=== PATIENT | female | born 1965 | race Caucasian/White ===

== ENCOUNTER 2018-01-17 03:23 | Observation (INO) ==
--- NOTE | 2018-01-17 04:33 | XR ---
EXAM DATE: 01/17/2018 4:24 AM EDT AGE/SEX: 52 years / Female INDICATIONS: Chest pain and tightness off and on for 2 weeks. CLINICAL DATA: This is the patient's initial encounter. Patient reports that signs and symptoms have been present for 2 weeks and indicates a pain score of 3/10. MEDICAL/SURGICAL HISTORY: None. None. COMPARISON: No prior exams available for comparison. FINDINGS: A single AP view of the chest demonstrates the lungs to be symmetrically aerated without evidence of mass, infiltrate or effusion. The cardiomediastinal contours are unremarkable. Osseous structures a re intact. CONCLUSION: Negative examination. Electronically signed by: Issac Fraga MD 01/17/2018 4:32 AM EDT
[2018-01-17 04:36] LABS: Baso # (Auto) 0.1 th/mm3 (0.0-0.2); Eos # (Auto) 0.2 th/mm3 (0.0-0.4); Eos % (Auto) 3.1 % (0.0-4.0); Hematocrit 44.6 % (35.0-46.0); Hemoglobin 14.9 gm/dL (11.6-15.3); Lymph # (Auto) 2.9 th/mm3 (1.0-4.8); Lymph % (Auto) 40.8 % (9.0-44.0); Mean Corpuscular HGB Conc 33.4 % (32.0-36.0); Mean Corpuscular Hemoglobin 29.8 pg (27.0-34.0); Mean Corpuscular Volume 89.3 fL (80.0-100.0); Mean Platelet Volume 8.7 fL (7.0-11.0); Mono # (Auto) 0.6 th/mm3 (0.0-0.9); Neut # (Auto) 3.3 th/mm3 (1.8-7.7); Neut % (Auto) 46.1 % (16.0-70.0); Platelet Count 292 th/mm3 (150-450); Red Cell Distribution Width 12.5 % (11.6-17.2); White Blood Count 7.2 th/mm3 (4.0-11.0)
[2018-01-17 04:47] LABS: Activated Partial Thrombo Time 25.2 sec (24.3-30.1); Prothrombin Time 10.4 sec (9.8-11.6)
[2018-01-17 04:49] LABS: Alanine Aminotransferase 24 U/L (10-53); Anion Gap 8 meq/L (5-15); Aspartate Aminotransferase 16 U/L (15-37); Blood Urea Nitrogen 16 mg/dL (7-18); Calcium 8.5 mg/dL (8.5-10.1); Chloride 106 meq/L (98-107); Glomerular Filtration Rate 89 mL/min (>89); Glucose,Random 89 mg/dL (74-106); Lipase 145 U/L (73-393); Magnesium 2.3 mg/dL (1.5-2.5); Potassium 3.6 meq/L (3.5-5.1); Sodium 141 meq/L (136-145)
[2018-01-17 04:53] LABS: Alkaline Phosphatase 48 U/L (45-117)
[2018-01-17 04:55] LABS: Creatine Kinase 45 U/L (26-192)
--- NOTE | 2018-01-17 06:54 | ED ---
HPI General Chief complaint: Chest Pain Stated complaint: chest pressure/tightness/dizziness Time Seen by Provider: 01/17/18 03:51 Source: patient Limitations: no limitations History of Present Illness HPI narrative: The patient is a 52 year old female who presents to the [facility] emergency department with a history of chest pain, dizziness, shortness of breath that began 3 weeks ago. She reports that since then it has been intermittently occurring Since December 20. Initially the patient thought that it was related to a change in her thyroid medication to a new generic, However even after switching back the symptoms have continued. The patient reports that she did on January 05 undergo a TSH that was noted to be low at 0.012. She reports that she did decrease the dose of her supplement. The patient reports that she has been to [facility] emergency department regarding this as well as an urgent reports that she has been referred to a can closing machine tender, however she has not seen one yet. She reports that she last had a stress test done in 2010. She reports that she has a history of cardiomyopathy in 2010 with an ejection fraction of 35% that returned to normal by 2013. The patient reports that this evening she had the chest pain occurred twice. She reports that each time it lasted for 5 minutes. She reports that the pain is a crushing sensation across her chest that radiated into both arms. She also reports that she had palpitations with an elevated heart rate at home up to 140. She denies having any diaphoresis. She reports having nausea without any vomiting. On review of systems otherwise, the patient denies having any known recent fevers, cough or congestion, neck pain, abdominal pain, diarrhea, urinary symptoms, or neurologic symptoms. Related Data Home Medications Medication Instructions Recorded Confirmed baclofen 20 mg PO HS 01/17/18 01/17/18 buspirone 30 mg PO HS 01/17/18 01/17/18 estradiol [Climara] 1 patch TRANSDERMAL QWEEK 01/17/18 01/17/18 liothyronine 50 mcg PO DAILY 01/17/18 01/17/18 methocarbamol [Robaxin] 1,000 mg PO BID 01/17/18 01/17/18 montelukast [Singulair] 10 mg PO DAILY 01/17/18 01/17/18 progesterone micronized 250 mg PO QPM 08/06/18 08/06/18 Allergies Allergy/AdvReac Type Severity Reaction Status Date / Time No Known Allergies Allergy Unverified 01/17/18 03:37 Review of Systems ROS Unobtainable All other systems reviewed negative except as stated in [facility] Medical History Medical History Anxiety (Acute) Cardiomyopathy (Acute) Fibromyalgia (Acute) Hypothyroid (Acute) IBS (irritable bowel syndrome) (Acute) Migraine (Acute) Surgical History Surgical History Hx of section (Acute) Hx of cholecystectomy (Acute) Social History Social History Substance History: No History of Abuse Second Hand Smoke Exposure: No Smoking Status: Never smoker How Often Do You Have a Drink Containing Alcohol: Monthly or less Immunization History Tetanus Immunization: Unsure Hx Influenza Vaccine This Season: No Exam Const General: cooperative, no acute distress and well developed Nutritional Appearance: well nourished Orientation: alert, awake and oriented x3 HENMT Head: normocephalic and atraumatic Nose: no nasal discharge and no epistaxis Mouth: moist mucous membranes Throat: posterior oropharynx normal and uvula midline Eyes Sclera: normal sclerae Pupils: PERRL Neck Neck: no meningeal signs, trachea midline and no JVD Resp Effort & Inspection: no use of accessory muscles Auscultation: clear to auscultation bilaterally Cardio Rate: regular rate Rhythm: regular rhythm Heart Sounds: no murmurs GI Inspection: non-distended Palpation: soft, no hepatosplenomegaly and nontender Auscultation: normal bowel sounds Back/Spine/Pelvis Back: no CVA tenderness Skin General: dry skin (warm) Neuro General: alert and awake Cranial Nerves: other (No facial asymmetry.) Speech: speech normal Motor: no movement abnormalities noted Extrem General: normal to inspection (No calf tenderness on palpation. 2+ pulses in all 4 extremities.), no clubbing, no cyanosis and no edema Psych Mood: congruent mood Affect: normal affect Judgment: judgment good Course Initial Documented Vital Signs Temperature 97.7 F 01/17/18 03:38 Pulse Rate 90 01/17/18 03:38 Respiratory Rate 15 01/17/18 03:38 Blood Pressure 138/86 01/17/18 03:38 Pulse Oximetry 98 01/17/18 03:38 Last Documented Vital Signs Temperature 97.7 F 01/17/18 03:38 Pulse Rate 71 01/17/18 07:38 Respiratory Rate 20 01/17/18 07:38 Blood Pressure 129/83 01/17/18 07:38 Pulse Oximetry 99 01/17/18 07:38 Medical Decision Making MDM Narrative Medical decision making narrative: During the course of the patient's emergency department visit, the patient's history, examination, and differential diagnosis were reviewed with the patient. The patient was placed on a cafeteria monitor with oximetry and frequent blood pressure monitoring. The patient had IV access obtained and blood work sent for analysis. A diagnostic evaluation was started regarding the patient's chest pain. The patient was initially provided Aspirin 324 mg p.o. 1, sublingual nitroglycerin 1. The patient's laboratory studies are remarkable for a white count of 7.2, platelets 292, monocyte percent 9.0, hemoglobin 14.9. PT PTT within normal limits, chemistries are remarkable for a troponin I of less than 0.02, CPK 45, TSH is 0.067 which is improved compared to her last level drawn on January 05 of 0.012, BNP is 16, lipase within normal limits. Chest x-ray shows no acute abnormality. The patient will be admitted to the chest pain center for rule out serial cardiac enzyme protocol followed by consideration of stress testing. The patient's results were discussed with the patient, including the plan of care. I explained that further testing and/ or monitoring is indicated based on the patient's history, examination, and/ or laboratory findings. Therefore, I recommended admission for additional evaluation. The patient expressed understanding and was agreeable with this plan. The patient was admitted to the hospital in stable condition and sent to a bed under the care of [facility]. Differential Diagnosis Differential Diagnosis: Acute coronary syndrome, versus hyperthyroidism, versus acid reflux, versus pneumonia Medical Records Medical records reviewed: Yes I reviewed the patient's medical records. Lab Data Lab results reviewed: Yes I reviewed the patient's lab results. Result diagrams: 01/17/18 04:26 01/17/18 04:26 Lab Results 01/17/18 01/17/18 01/17/18 Range/Units 04:26 04:26 04:26 WBC 7.2 (4.0-11.0) th/mm3 RBC 5.00 (4.00-5.30) mil/mm3 Hgb 14.9 (11.6-15.3) gm/dL Hct 44.6 (35.0-46.0) % MCV 89.3 (80.0-100.0) fL MCH 29.8 (27.0-34.0) pg MCHC 33.4 (32.0-36.0) % RDW 12.5 (11.6-17.2) % Plt Count 292 (150-450) th/mm3 MPV 8.7 (7.0-11.0) fL Neut % (Auto) 46.1 (16.0-70.0) % Lymph % (Auto) 40.8 (9.0-44.0) % [place] % (Auto) 9.0 H (0.0-8.0) % Eos % (Auto) 3.1 (0.0-4.0) % Baso % (Auto) 1.0 (0.0-2.0) % Neut # (Auto) 3.3 (1.8-7.7) th/mm3 Lymph # (Auto) 2.9 (1.0-4.8) th/mm3 [place] # (Auto) 0.6 (0.0-0.9) th/mm3 Eos # (Auto) 0.2 (0.0-0.4) th/mm3 Baso # (Auto) 0.1 (0.0-0.2) th/mm3 WBC Differential . Differential Comment Auto diff final PT 10.4 (9.8-11.6) sec INR 1.0 Ratio APTT 25.2 (24.3-30.1) sec Sodium 141 (136-145) meq/L Potassium 3.6 (3.5-5.1) meq/L Chloride 106 (98-107) meq/L Carbon Dioxide 27.0 (21.0-32.0) meq/L Anion Gap 8 (5-15) meq/L BUN 16 (7-18) mg/dL Creatinine 0.69 (0.50-1.00) mg/dL Estimated GFR 89 (>89) mL/min Random Glucose 89 (74-106) mg/dL Calcium 8.5 (8.5-10.1) mg/dL Magnesium 2.3 (1.5-2.5) mg/dL Total Bilirubin 0.2 (0.2-1.0) mg/dL AST 16 (15-37) U/L ALT 24 (10-53) U/L Alkaline Phosphatase 48 (45-117) U/L Total Creatine Kinase 45 (26-192) U/L Troponin I Less than 0.02 L (0.02-0.05) ng/mL B-Natriuretic Peptide (0-100) pg/mL Total Protein 7.0 (6.4-8.2) g/dL Albumin 4.0 (3.4-5.0) g/dL Lipase 145 (73-393) U/L TSH (0.358-3.740) uIU/mL 01/17/18 01/17/18 Range/Units 04:26 04:26 WBC (4.0-11.0) th/mm3 RBC (4.00-5.30) mil/mm3 Hgb (11.6-15.3) gm/dL Hct (35.0-46.0) % MCV (80.0-100.0) fL MCH (27.0-34.0) pg MCHC (32.0-36.0) % RDW (11.6-17.2) % Plt Count (150-450) th/mm3 MPV (7.0-11.0) fL Neut % (Auto) (16.0-70.0) % Lymph % (Auto) (9.0-44.0) % [place] % (Auto) (0.0-8.0) % Eos % (Auto) (0.0-4.0) % Baso % (Auto) (0.0-2.0) % Neut # (Auto) (1.8-7.7) th/mm3 Lymph # (Auto) (1.0-4.8) th/mm3 [place] # (Auto) (0.0-0.9) th/mm3 Eos # (Auto) (0.0-0.4) th/mm3 Baso # (Auto) (0.0-0.2) th/mm3 WBC Differential Differential Comment PT (9.8-11.6) sec INR Ratio APTT (24.3-30.1) sec Sodium (136-145) meq/L Potassium (3.5-5.1) meq/L Chloride (98-107) meq/L Carbon Dioxide (21.0-32.0) meq/L Anion Gap (5-15) meq/L BUN (7-18) mg/dL Creatinine (0.50-1.00) mg/dL Estimated GFR (>89) mL/min Random Glucose (74-106) mg/dL Calcium (8.5-10.1) mg/dL Magnesium (1.5-2.5) mg/dL Total Bilirubin (0.2-1.0) mg/dL AST (15-37) U/L ALT (10-53) U/L Alkaline Phosphatase (45-117) U/L Total Creatine Kinase (26-192) U/L Troponin I (0.02-0.05) ng/mL B-Natriuretic Peptide 4 (0-100) pg/mL Total Protein (6.4-8.2) g/dL Albumin (3.4-5.0) g/dL Lipase (73-393) U/L TSH 0.067 L (0.358-3.740) uIU/mL Imaging Data Radiologist's impression: Chest X-Ray 01/17/18 03:53 CONCLUSION: Negative examination. ECG Data Attestation: I personally reviewed and interpreted this ECG as follows: Interpretation: The patient had an EKG done on arrival. The patient's EKG reveals a heart rate of 73, QRS duration is 75 ms, QTC [address] segment elevation. Discharge Plan Discharge Disposition Patient Disposition: 30 Still Patient Physicians Team ED Provider: Marlena Chaudhry Primary Care Provider: Matt Ying Attending Provider: Obed Castillo Discharge Interventions Interventions: Vital Signs Last Done: 01/17/18 03:53 Status ED Status: Admitted Observation Patient
[2018-01-17] MEDS ORDERED: Acetaminophen 500 MG Tablet PO PRN (06:55)
--- NOTE | 2018-01-17 08:03 | P.HPCA ---
History of Present Illness Primary Care Physician: Matt Ying MD Chief Complaint: Chest pain History of Present Illness: 52 year old female with history of anxiety, fibromyalgia, hypothyroidism, irritable bowel syndrome, and reportedly cardiomyopathy presents emergency room for further evaluation intermittent, nonexertional chest pain. First episode occurred on 12/25/17. Seen and evaluated at [facility], no cardiac testing completed, discharged home. Seen her PCP after ER visit. Received referrals to an rail bonder and airconditioning engineer, those appointments are scheduled at a later date. Describes intermittent chest pressure with accompanied dyspnea and dizziness. Occurs once or twice daily. Duration varies. Severe discomfort may last 20-30 minutes followed by lingering all day pain. No precipitating or relieving factors. Discomfort also awakens her from sleep. Last evening at midnight was awakened with substernal chest pressure and "crushing feeling." She fell back to sleep. Awakened again at 2 AM with same pain. Recent change in thyroid medication, otherwise no medications changes. Endorses cardiac catheterization completed by Dr. Ron Escamilla approximately 4 years ago. Diagnosed with cardiomyopathy after cardiac catheterization with ER of 35%. Followed yearly with echocardiograms, last year was discharged by her airconditioning engineer as ejection fraction normalized and remained stable for 3 years. Reports cardiac catheterization had "maybe 10%" blockage, otherwise coronary arteries normal. No recent illness, fever, or injury. - Diagnosis (1) Chest pain, atypical Review of Systems All other systems reviewed negative except as stated in HPI PMFSH - History History Provided By: Patient - Medical History Medical History: Medical History (Last Reviewed 01/17/18 @ 09:12 by YAYA Katz) Anxiety Cardiomyopathy Fibromyalgia Hypothyroid IBS (irritable bowel syndrome) Migraine - Surgical History Surgical History: Surgical History (Last Reviewed 01/17/18 @ 07:49 by Marlena Chaudhry MD) Hx of section Hx of cholecystectomy - Tobacco History Second Hand Smoke Exposure: No Tobacco Use In Past 30 Days: No Smoking Status: Never smoker - Alcohol History How Often Do You Have a Drink Containing Alcohol: Monthly or less - Substance Use History Substance History: No History of Abuse - Immunization History Tetanus Immunization: Unsure Hx Influenza Vaccine This Season: No Medications and Allergies Active Medications: Active Medications Acetaminophen (Tylenol) 500 mg PO Q4H PRN PRN Reason: HEADACHE Sodium Chloride (Ns Flush) 2 ml IV.FLUSH UNSCH PRN PRN Reason: FLUSH AFTER USING IV ACCESS Sodium Chloride (Ns Flush) 2 ml IV.FLUSH BID FIGUEROA Sodium Chloride (Ns Flush) 2 ml IV.FLUSH PRN PRN PRN Reason: FLUSH AFTER USING IV ACCESS Allergies Allergy/AdvReac Type Severity Reaction Status Date / Time No Known Allergies Allergy Unverified 01/17/18 03:37 Home Medications Medication Instructions Recorded Confirmed Type baclofen 20 mg PO HS 01/17/18 01/17/18 History buspirone 30 mg PO HS 01/17/18 01/17/18 History estradiol [Climara] 1 patch TRANSDERMAL QWEEK 01/17/18 01/17/18 History liothyronine 50 mcg PO DAILY 01/17/18 01/17/18 History methocarbamol [Robaxin] 1,000 mg PO BID 01/17/18 01/17/18 History montelukast [Singulair] 10 mg PO DAILY 01/17/18 01/17/18 History progesterone micronized 250 mg PO QPM 01/17/18 01/17/18 History Exam Vital signs: Vital Signs 01/17/18 03:38 01/17/18 03:53 01/17/18 04:25 Temperature 97.7 F Pulse Rate 90 83 Respiratory Rate 15 18 Blood Pressure 138/86 137/97 H Pulse Oximetry 98 96 96 01/17/18 07:38 Temperature Pulse Rate 71 Respiratory Rate 20 Blood Pressure 129/83 Pulse Oximetry 99 Intake & Output 01/16/18 01/17/18 01/17/18 18:59 06:59 18:59 Weight 49.895 kg Narrative: GENERAL: Alert WN, WD, NAD, pleasant, female HEAD: NC, AT CV: RRR, without murmur, rub, gallop, no JVD. RESP: Clear lungs throughout bilateral, no crackles, wheeze, rhonchi, symmetrical chest rise, nonlabored, able to speak in full sentences ABD: Soft, NT, ND, no masses, positive bowel tones EXT: Pulses +2x4, no dependent edema MS: Normal tone x4 extremities, nontender, no obvious deformities, full range of motion NEURO: CN II through CN XII grossly intact, motor strength 5/5 PSYCH: A+O x3, pleasant affect, appropriate speech, mood, insight and judgment SKIN: Normal turgor, normal texture, no lesions, no rashes, brisk cap refill, even hair distribution Results 01/17/18 04:26 01/17/18 04:26 Cardiac Enzymes 01/17/18 01/17/18 Range/Units 04:26 04:26 AST 16 (15-37) U/L Troponin I Less than 0.02 L (0.02-0.05) ng/mL B-Natriuretic Peptide 4 (0-100) pg/mL Coagulation 01/17/18 01/17/18 Range/Units 04:26 04:26 PT 10.4 (9.8-11.6) sec APTT 25.2 (24.3-30.1) sec B-Natriuretic Peptide 4 (0-100) pg/mL CBC 01/17/18 Range/Units 04:26 WBC 7.2 (4.0-11.0) th/mm3 RBC 5.00 (4.00-5.30) mil/mm3 Hgb 14.9 (11.6-15.3) gm/dL Hct 44.6 (35.0-46.0) % Plt Count 292 (150-450) th/mm3 Neut # (Auto) 3.3 (1.8-7.7) th/mm3 Lymph # (Auto) 2.9 (1.0-4.8) th/mm3 [place] # (Auto) 0.6 (0.0-0.9) th/mm3 Eos # (Auto) 0.2 (0.0-0.4) th/mm3 Baso # (Auto) 0.1 (0.0-0.2) th/mm3 Comprehensive Metabolic Panel 01/17/18 Range/Units 04:26 Sodium 141 (136-145) meq/L Potassium 3.6 (3.5-5.1) meq/L Chloride 106 (98-107) meq/L Carbon Dioxide 27.0 (21.0-32.0) meq/L BUN 16 (7-18) mg/dL Creatinine 0.69 (0.50-1.00) mg/dL Calcium 8.5 (8.5-10.1) mg/dL AST 16 (15-37) U/L ALT 24 (10-53) U/L Alkaline Phosphatase 48 (45-117) U/L Total Protein 7.0 (6.4-8.2) g/dL Albumin 4.0 (3.4-5.0) g/dL Intake and Output 01/16/18 01/17/18 01/17/18 22:59 06:59 14:59 Other: Weight 49.895 kg EKG interpretations - EKG EKG results cardiology: sinus rhythm, normal axis, normal QRS, normal ST/T Caprini VTE Risk Assessment Caprini VTE Risk Assessment: No/Low Risk (score <= 1) Caprini Risk Assessment Model: Point Value = 1 Point Value = 2 Point Value = 3 Point Value = 5 Age 41-60 Minor surgery BMI > 25 kg/m2 Swollen legs Varicose veins or History of unexplained or recurrent spontaneous Oral contraceptives or hormone replacement Sepsis (< 1 month) Serious lung disease, including pneumonia (< 1 month) Abnormal pulmonary function Acute myocardial infarction Congestive heart failure (< 1 month) History of inflammatory bowel disease Medical patient at bed rest Age 61-74 Arthroscopic surgery Major open surgery (> 45 min) Laparoscopic surgery (> 45 min) Malignancy Confined to bed (> 72 hours) Immobilizing plaster cast Central venous access Age >= 75 History of VTE Family history of VTE Factor V Leiden Prothrombin [id number] Lupus anticoagulant Anticardiolipin antibodies Elevated serum homocysteine Heparin-induced thrombocytopenia Other congenital or acquired thrombophilia Stroke (< 1 month) Elective arthroplasty Hip, pelvis, or leg fracture Acute spinal cord injury (< 1 month) Prophylaxis Regimen: Total Risk Factor Score Risk Level Prophylaxis Regimen 0-1 Low Early ambulation 2 Moderate Order ONE of the following: *Sequential Compression Device (SCD) *Heparin 5000 units SQ BID 3-4 Higher Order ONE of the following medications: *Heparin 5000 units SQ TID *Enoxaparin/Lovenox 40 mg SQ daily (WT < 150 kg, CrCl > 30 mL/min) *Enoxaparin/Lovenox 30 mg SQ daily (WT < 150 kg, CrCl > 10-29 mL/min) *Enoxaparin/Lovenox 30 mg SQ BID (WT < 150 kg, CrCl > 30 mL/min) AND/OR *Sequential Compression Device (SCD) 5 or more Highest Order ONE of the following medications: *Heparin 5000 units SQ TID (Preferred with Epidurals) *Enoxaparin/Lovenox 40 mg SQ daily (WT < 150 kg, CrCl > 30 mL/min) *Enoxaparin/Lovenox 30 mg SQ daily (WT < 150 kg, CrCl > 10-29 mL/min) *Enoxaparin/Lovenox 30 mg SQ BID (WT < 150 kg, CrCl > 30 mL/min) AND *Sequential Compression Device (SCD) Assessment and Plan - Assessment (1) Chest pain, atypical Code(s): R07.89 - Other chest pain Status: Acute Plan: Admitted to chest pain center. Seen and evaluated by Dr. Pedro Rodriguez. Proceed with Lexiscan this morning. Initial EKG and troponin unremarkable. Discomfort atypical, unlikely to be cardiac. Fairly recent cardiac catheterization with reportedly normal urinary arteries. Reassurance provided. Also discussed ejection fraction estimate will be given with Lexiscan report. Verbalized understanding and agreeable to plan of care.
[2018-01-17] MEDS ORDERED: Regadenoson Inj 0.4 MG/5 ML Syringe IV.PUSH ONE (09:49)
[2018-01-17] MEDS ORDERED: Methocarbamol 500 MG Tablet PO SCH (10:00)
[2018-01-17] MEDS ORDERED: Montelukast 10 MG Tablet PO SCH (10:00)
--- NOTE | 2018-01-17 10:53 | NM ---
EXAM DATE: 01/17/2018 10:36 AM EDT AGE/SEX: 52 years / Female INDICATIONS:Angina. . Mid chest pain with shortness of breath and dizziness. CLINICAL DATA: This is the patient's initial encounter. Patient reports that signs and symptoms have been present for 1 day and indicates a pain score of 4/10. MEDICAL/SURGICAL HISTORY: Hypothyroidism. Cholecystectomy. section. COMPARISON: No prior exams available for comparison. No external comparison. DOSE: 8.7 mCi Tc 99m Myoview at rest 26.8 mCi [id number] at stress 0.4 mg Lexiscan STRESS SYMPTOMS: Dyspnea and chest pain. EJECTION FRACTION: >70 % TECHNIQUE: The patient underwent pharmacologic stress with infusion of prescribed dose. Continuous ECG tracing was monitored during stress. Gated SPECT imaging was performed after stress and conventi onal SPECT imaging was performed at rest. The examination was performed on a SPECT/CT scanner, both attenuation and non-corrected datasets were reviewed. FINDINGS: Distribution: The maximum perfused segment at stress is in the anterolateral wall. Perfusion Study: The pattern of perfusion at stress is within normal limits. Gated Study: There are intact wall motion and wall thickening without hypokinetic or dyskinetic segm ents. The ejection fraction is calculated at >70%. RISK CATEGORY: Low (<1% Annual Motality Rate) CONCLUSION: 1. No significant reversibility to suggest ischemia. 2. Normal wall motion analysis with ejection fraction greater than 70%. Electronically signed by: Sunil Damon MD 01/17/2018 10:52 AM EDT
[2018-01-18 21:49] VITALS: BP 100/75; PULSE 82; RESP 16; TEMP 98.2; O2SAT 97
--- NOTE | 2018-01-19 09:07 | ECG ---
Date Performed: 01/17/2018 Time Performed: 04:03:58 PTAGE: 52 years EKG: Sinus rhythm NORMAL ECG PREVIOUS TRACING : 12/04/2015 12.44 Since previous tracing, no significant change noted DOCTOR: Pedro Rodriguez Interpretating Date/Time 01/19/2018 09:03:59
--- NOTE | 2018-01-19 09:09 | TR ---
Date Performed: 01/17/2018 Time Performed: 09:28:04 DOCTOR: Pedro Rodriguez DRUG LIST: CLINICAL HISTORY: REASON FOR TEST: REASON FOR ENDING: OBSERVATION: CONCLUSION: COMMENTS: Lexiscan stress test was performed under standard four minute protocol. Radionuclide was injected one minute prior to ending the test. No electrocardiographic abormalities were present t o suggest ischemia. Nuclear imaging and interpretation are pending.
== END 2018-01-17 11:53 | disposition home or self-care (01) ==
LOC: NEPGCP 03:23 → NEPC 03:23 → NEDA 03:23 → NEPGCP 10:35

== ENCOUNTER 2018-02-08 21:14 | Observation (INO) ==
[2018-02-08] MEDS ORDERED: Pantoprazole Inj 40 MG Vial IV.PUSH ONE (23:18)
[2018-02-08] MEDS ORDERED: Morphine Inj 4 MG/ML Vial IV.PUSH ONE (23:18)
[2018-02-08] MEDS ORDERED: Sod Chloride 0.9% Inj 1,000 ML IV.SIG ONE (23:18)
[2018-02-08] MEDS ORDERED: Bisacodyl 10 MG Supp RECTAL PRN (23:18)
--- NOTE | 2018-02-08 23:24 | ED ---
HPI General Chief Complaint: Abdominal Pain Stated Complaint: Abd pain [id number] History of Present Illness HPI narrative: 52-year-old female with a past medical history fibromyalgia and hypothyroidism presents to the emergency room complaining of persistent epigastric abdominal pain radiating into the chest was burning sensation in the upper chest and throat area with associated nausea, vomiting, shortness of breath especially when laying flat. Patient was seen in the emergency room several times this month for similar symptoms and received cardiac clearance by stress test. Patient reports taking Protonix and Carafate as an outpatient however she is unable to tolerate the medication by mouth for the persistent nausea and vomiting. Related Data Home Medications Medication Instructions Recorded Confirmed baclofen 20 mg PO HS 01/22/18 02/08/18 buspirone 30 mg PO HS 01/22/18 02/08/18 estradiol [Estradiol Transdermal 0.05 mg TRANSDERMAL QWEEK 01/22/18 02/08/18 Patch] montelukast 10 mg PO QPM 01/22/18 02/08/18 progesterone micronized 250 mg PO DAILY 01/22/18 02/08/18 liothyronine 12.5 mcg PO DAILY 02/09/18 02/09/18 methocarbamol [Robaxin] 500 mg PO BID 02/09/18 02/09/18 pantoprazole 40 mg PO DAILY 02/09/18 02/09/18 sucralfate [Carafate] 10 ml PO TID 02/09/18 02/09/18 Allergies Allergy/AdvReac Type Severity Reaction Status Date / Time ciprofloxacin [From Cipro] AdvReac Nausea Verified 02/08/18 22:57 levofloxacin [From Levaquin] AdvReac Nausea Verified 02/08/18 22:57 Review of Systems Constitutional Denies fever(s) Eyes Denies change in vision ENT Denies headache(s) and Denies nasal congestion Cardiovascular Reports chest pain Respiratory Denies dyspnea Gastrointestinal Reports abdominal pain, Reports belching, Reports nausea and Reports vomiting Genitourinary Denies difficulty voiding Musculoskeletal Denies myalgias Integumentary/Breasts Denies rash Neurologic Denies headache(s) Psychiatric Denies depression Endocrine Denies polyuria Hematologic/Lymphatic Denies easy bruising [facility] Medical History Medical History Migraine (Acute) IBS (irritable bowel syndrome) (Acute) Anxiety (Acute) Fibromyalgia (Acute) Cardiomyopathy (Acute) Hypothyroid (Acute) Surgical History Surgical History Hx of section (Acute) Hx of cholecystectomy (Acute) Social History Social History Substance History: No History of Abuse Second Hand Smoke Exposure: No Smoking Status: Never smoker How Often Do You Have a Drink Containing Alcohol: Never Recent Travel in [facility] [[email or web address]] within the Last 8 Weeks: No Recent Out of Country Travel within the Last 8 Weeks: No Immunization History Tetanus Immunization: >5 Years Hx Influenza Vaccine This Season: No Exam Narrative Exam Narrative: GENERAL: Patient is alert and oriented -3 SKIN: Focused skin assessment warm/dry. HEAD: Atraumatic. Normocephalic. EYES: Pupils equal and round. No scleral icterus. No injection or drainage. ENT: No nasal bleeding or discharge. Mucous membranes pink and moist. NECK: Trachea midline. No JVD. CARDIOVASCULAR: Regular rate and rhythm. No murmur appreciated. RESPIRATORY: No accessory muscle use. Clear to auscultation. Breath sounds equal bilaterally. GASTROINTESTINAL: Abdomen soft, epigastric abdominal tenderness , nondistended. Hepatic and splenic margins not palpable. MUSCULOSKELETAL: No obvious deformities. No clubbing. No cyanosis. No edema. NEUROLOGICAL: Awake and alert. No obvious cranial nerve deficits. Motor grossly within normal limits. Normal speech. PSYCHIATRIC: Appropriate mood and affect; insight and judgment normal. Course Reevaluation(s) Reevaluation #1: Patient condition improved during the ER course. I personally reexamined and counseled the patient about her diagnosis and results. Time: 01:08 Initial Documented Vital Signs Temperature 98.2 F 02/08/18 21:33 Pulse Rate 102 H 02/08/18 21:33 Respiratory Rate 16 02/08/18 21:33 Blood Pressure 136/78 02/08/18 21:33 Pulse Oximetry 96 02/08/18 21:33 Last Documented Vital Signs Temperature 98.7 F 02/09/18 03:26 Pulse Rate 89 02/09/18 03:26 Respiratory Rate 20 02/09/18 03:26 Blood Pressure 123/78 02/09/18 03:26 Pulse Oximetry 97 02/09/18 03:26 Medical Decision Making MDM Narrative Medical Screen Exam Complete: Yes Emergency Medical Condition: Yes Lab Data Result diagrams: 02/08/18 23:35 02/08/18 23:35 Lab Results 02/08/18 02/08/18 02/08/18 Range/Units 22:50 23:35 23:35 CBC w Diff Auto diff final WBC 8.8 (4.0-11.0) th/mm3 RBC 4.83 (4.00-5.30) mil/mm3 Hgb 14.9 (11.6-15.3) gm/dL Hct 43.6 (35.0-46.0) % MCV 90.2 (80.0-100.0) fL MCH 30.8 (27.0-34.0) pg MCHC 34.1 (32.0-36.0) % RDW 12.5 (11.6-17.2) % Plt Count 329 (150-450) th/mm3 MPV 8.4 (7.0-11.0) fL Neut % (Auto) 60.0 (16.0-70.0) % Lymph % (Auto) 30.3 (9.0-44.0) % [place] % (Auto) 6.9 (0.0-8.0) % Eos % (Auto) 1.2 (0.0-4.0) % Baso % (Auto) 1.6 (0.0-2.0) % Neut # (Auto) 5.3 (1.8-7.7) th/mm3 Lymph # (Auto) 2.7 (1.0-4.8) th/mm3 [place] # (Auto) 0.6 (0.0-0.9) th/mm3 Eos # (Auto) 0.1 (0.0-0.4) th/mm3 Baso # (Auto) 0.1 (0.0-0.2) th/mm3 WBC Differential . Differential Comment . Sodium 138 (136-145) meq/L Potassium 3.6 (3.5-5.1) meq/L Chloride 101 (98-107) meq/L Carbon Dioxide 27.2 (21.0-32.0) meq/L Anion Gap 10 (5-15) meq/L BUN 9 (7-18) mg/dL Creatinine 0.62 (0.50-1.00) mg/dL Estimated GFR Greater than 89 (>89) mL/min Random Glucose 87 (74-106) mg/dL Calcium 9.1 (8.5-10.1) mg/dL Total Bilirubin 0.6 (0.2-1.0) mg/dL AST 15 (15-37) U/L ALT 23 (10-53) U/L Alkaline Phosphatase 49 (45-117) U/L Troponin I Less than 0.02 L (0.02-0.05) ng/mL Total Protein 7.4 (6.4-8.2) g/dL Albumin 4.1 (3.4-5.0) g/dL Lipase 145 (73-393) U/L Urine Color Yellow (Yellw/Straw) Urine Clarity Clear (Clear) Urine pH 5.5 (5.0-8.5) Ur Specific [place] 1.010 (1.002-1.035) Urine Protein Negative (Neg-Trace) mg/dL Urine Glucose (UA) Negative (Negative) mg/dL Urine Ketones 80 or greater H (Negative) mg/dL Urine Occult Blood Negative (Negative) Urine Nitrate Negative (Negative) Urine Bilirubin Negative (Negative) Urine Urobilinogen 0.2 (Less than 2) mg/dL Ur Leukocyte Esterase Trace H (Negative) Urine RBC 0-3 (0-3) /hpf Urine WBC 6-8 H (0-5) /hpf Ur Squamous Epith Cells 6-10 H (0-5) /hpf Micro UA Comment Culture not ind Ur Microscopic Review Microscopic reviewed Urine Culture Comments Culture not ind Imaging Data Radiologist's impression: Abdomen/Pelvis CT 02/09/18 00:36 CONCLUSION: 1. No obstruction or acute inflammatory changes. 2. Heterogeneously enhancing mass of the cervix/lower uterine segment remnant. This may be a fibroid but cervical and endometrial carcinoma would also be in the differential. No lymphadenopathy or free fluid. 3. Benign cyst and mild fatty infiltration of the liver. Discharge Plan Discharge Disposition Patient Disposition: 02 Transfer to [facility] Discharge Condition Condition: Fair Discharge Details Diagnosis: Abdominal pain, Vomiting, Mass of uterine cervix Physicians Team ED Provider: Calderon Ricci Primary Care Provider: Matt Ying Attending Provider: Jennifer Dwyer Other Providers: Cosme Kearney V Discharge Interventions Interventions: ED Discharge Assessment Last Done: 02/09/18 03:05 Vital Signs Last Done: 02/09/18 03:05 Status ED Status: Left Department Discharge Information Discharge Date/Time: 02/09/18 03:18
[2018-02-08 23:43] LABS: Bilirubin,Urine Negative (Negative); Clarity,Urine Clear (Clear); Color,Urine Yellow (Yellw/Straw); Glucose,Urine (UA) Negative (Negative); Leukocyte Esterase,Urine Trace (Negative); Nitrite,Urine Negative (Negative); PH,Urine 5.5 (5.0-8.5); Urobilinogen,Urine 0.2 mg/dL (Less than 2)
[2018-02-08 23:45] LABS: Baso # (Auto) 0.1 th/mm3 (0.0-0.2); Baso % (Auto) 1.6 % (0.0-2.0); Eos # (Auto) 0.1 th/mm3 (0.0-0.4); Eos % (Auto) 1.2 % (0.0-4.0); Hematocrit 43.6 % (35.0-46.0); Hemoglobin 14.9 gm/dL (11.6-15.3); Lymph # (Auto) 2.7 th/mm3 (1.0-4.8); Lymph % (Auto) 30.3 % (9.0-44.0); Mean Corpuscular HGB Conc 34.1 % (32.0-36.0); Mean Corpuscular Hemoglobin 30.8 pg (27.0-34.0); Mean Corpuscular Volume 90.2 fL (80.0-100.0); Mean Platelet Volume 8.4 fL (7.0-11.0); Mono # (Auto) 0.6 th/mm3 (0.0-0.9); Mono % (Auto) 6.9 % (0.0-8.0); Neut # (Auto) 5.3 th/mm3 (1.8-7.7); Platelet Count 329 th/mm3 (150-450); Red Blood Count 4.83 mil/mm3 (4.00-5.30); Red Cell Distribution Width 12.5 % (11.6-17.2); White Blood Count 8.8 th/mm3 (4.0-11.0)
[2018-02-08 23:49] LABS: RBC,Urine 0-3 /hpf (0-3)
[2018-02-08 23:52] LABS: Chloride 101 meq/L (98-107); Potassium 3.6 meq/L (3.5-5.1); Sodium 138 meq/L (136-145)
[2018-02-08 23:55] LABS: Calcium 9.1 mg/dL (8.5-10.1)
[2018-02-08 23:56] LABS: Albumin 4.1 g/dL (3.4-5.0); Anion Gap 10 meq/L (5-15); Blood Urea Nitrogen 9 mg/dL (7-18); Carbon Dioxide 27.2 meq/L (21.0-32.0); Glucose,Random 87 mg/dL (74-106); Lipase 145 U/L (73-393)
[2018-02-08 23:58] LABS: Alanine Aminotransferase 23 U/L (10-53); Aspartate Aminotransferase 15 U/L (15-37)
[2018-02-08 23:59] LABS: Glomerular Filtration Rate Greater Than 89 mL/min (>89)
[2018-02-09] LABS: Total Protein 7.4 g/dL (6.4-8.2)
[2018-02-09 00:01] LABS: Alkaline Phosphatase 49 U/L (45-117)
[2018-02-09] MEDS: Pantoprazole Inj 40 MG Vial IV.PUSH SCH ×3 (00:21→23:46)
[2018-02-09] MEDS: Sod Chloride 0.9% Inj 1,000 ML IV.CONT SCH ×3 (00:58→20:41)
[2018-02-09] MEDS ORDERED: Diatrizoate Meglum/Diatrizoate Sod Liq 9 ML UDC PO SCH (01:00)
--- NOTE | 2018-02-09 02:45 | CT ---
EXAM DATE: 02/09/2018 2:17 AM EDT AGE/SEX: 52 years / Female INDICATIONS: Abdominal pain. CLINICAL DATA: This is the patient's initial encounter. Patient reports that signs and symptoms have been present for 2 months and indicates a pain score of 9/10. MEDICAL/SURGICAL HISTORY: Inflammatory bowel disease. Hysterectomy. Cholecystectomy. ORAL CONTRAST: Prescribed oral contrast ingested. RADIATION DOSE: 4.85 CTDI (mGy) COMPARISON: No prior exams available for comparison. TECHNIQUE: Multiple contiguous axial images were obtained through the abdomen and pelvis following b olus infusion of 175 ml Omnipaque 350 (iohexol) nonionic water-soluble contrast as a single exam do se. Prescribed oral contrast ingested. Using automated exposure control and adjustment of the mA and /or kV according to patient size, radiation dose was kept as low as reasonably achievable to obtain o ptimal diagnostic quality images. DICOM format image data is available electronically for review and comparison. FINDINGS: 2.2 cm benign cyst of the right hepatic lobe. Localized mild fatty infiltration around the falciform ligament. Liver is otherwise normal. Patient has had previous cholecystectomy. Spleen, pancreas, adrenal glands and kidneys are all normal. Nonspecific distention of the stomach. No inflammatory changes or perceptible mass. CT appearance of the small and large bowel within normal limits. I believe the patient has had previous appendectomy. In any event, no right lower quadrant inflammatory changes are seen. Reportedly previous hysterectomy. Apparently, this was cervical sparing. There is a mass of the cervi x/lower uterine segment remnant that measures approximately 4.3 cm in size. Adnexal regions are withi n normal limits. No free fluid. Bilateral lung bases are within normal limits. No acute bony abnormality demonstrated. CONCLUSION: 1. No obstruction or acute inflammatory changes. 2. Heterogeneously enhancing mass of the cervix/lower uterine segment remnant. This may be a fibroid but cervical and endometrial carcinoma would also be in the differential. No lymphadenopathy or free fluid. 3. Benign cyst and mild fatty infiltration of the liver. Electronically signed by: Surya Mccray MD 02/09/2018 2:44 AM EDT
[2018-02-09 06:58] LABS: Baso # (Auto) 0.1 th/mm3 (0.0-0.2); Baso % (Auto) 1.7 % (0.0-2.0); Eos # (Auto) 0.1 th/mm3 (0.0-0.4); Eos % (Auto) 1.8 % (0.0-4.0); Hematocrit 39.5 % (35.0-46.0); Hemoglobin 13.2 gm/dL (11.6-15.3); Lymph # (Auto) 1.8 th/mm3 (1.0-4.8); Lymph % (Auto) 29.8 % (9.0-44.0); Mean Corpuscular HGB Conc 33.5 % (32.0-36.0); Mean Corpuscular Hemoglobin 30.3 pg (27.0-34.0); Mean Corpuscular Volume 90.5 fL (80.0-100.0); Mean Platelet Volume 8.5 fL (7.0-11.0); Mono # (Auto) 0.6 th/mm3 (0.0-0.9); Neut # (Auto) 3.5 th/mm3 (1.8-7.7); Neut % (Auto) 56.7 % (16.0-70.0); Platelet Count 274 th/mm3 (150-450); Red Blood Count 4.36 mil/mm3 (4.00-5.30); Red Cell Distribution Width 12.4 % (11.6-17.2); White Blood Count 6.1 th/mm3 (4.0-11.0)
[2018-02-09 07:07] LABS: Chloride 106 meq/L (98-107); Potassium 3.9 meq/L (3.5-5.1); Sodium 142 meq/L (136-145)
[2018-02-09] MEDS ORDERED: Morphine Sulfate Inj 2 MG/ML Vial IV.PUSH PRN (07:10)
[2018-02-09 07:24] LABS: Alanine Aminotransferase 21 U/L (10-53); Albumin 3.5 g/dL (3.4-5.0); Alkaline Phosphatase 41 U/L (45-117); Anion Gap 6 meq/L (5-15); Aspartate Aminotransferase 15 U/L (15-37); Blood Urea Nitrogen 7 mg/dL (7-18); Calcium 8.1 mg/dL (8.5-10.1); Carbon Dioxide 30.2 meq/L (21.0-32.0); Glomerular Filtration Rate Greater Than 89 mL/min (>89); Glucose,Random 87 mg/dL (74-106); Lipase 137 U/L (73-393); Total Protein 6.2 g/dL (6.4-8.2)
[2018-02-09] MEDS: Acetaminophen 650 MG Supp RECTAL PRN ×3 (11:16→23:47)
--- NOTE | 2018-02-09 11:19 | P.HPFP ---
History of Present Illness Primary Care Physician: Matt Ying MD History of Present Illness: This is a pleasant 52-year-old female with history of GERD who presents with a 6 week history of intermittent epigastric pain, acid reflux, nausea and vomiting, belching. Patient states she has been unable to sleep or eat much over the past 4 weeks. She has been on unable to take p.o. medications. Patient has been seen in the ER and urgent cares multiple times. She had a negative cardiac workup several weeks ago as she was having some chest pain shortness of breath and dizziness at that time. Patient states symptoms are worsened by laying flat. Patient believes that symptoms might have been brought on by switching her blood baclofen to generic, and switching her Synthroid to generic also her thyroid medications were being adjusted. She did have an EGD in 2011 for indication of nausea and vomiting showing nonspecific gastritis. She also endorses headache which she thinks is worsened by Reglan and has not responded to morphine IV. She does have history of migraines and used to take Fioricet for that. She does not want to take triptan's due to potential side effects. Patient has past medical history of Autoimmune hypothyroidism, cardiomyopathy now resolved, heart palpitations and has 24 hour Holter monitor ordered as well as cardiac CTA, chronic pain with cervical radiculopathy and low back pain Fibromyalgia Anxiety Migraines Rhinitis History of opioid dependence no longer on opioids On hormone replacement therapy Chronic hypotension Appendectomy, cholecystectomy, - Diagnosis (1) Intractable nausea and vomiting (2) GERD (gastroesophageal reflux disease) (3) Abdominal pain PMFSH - History History Provided By: Patient - Medical History Medical History: Medical History (Last Reviewed 02/08/18 @ 23:24 by Calderon Ricci) Migraine (Acute) IBS (irritable bowel syndrome) (Acute) Anxiety (Acute) Fibromyalgia (Acute) Cardiomyopathy (Acute) Hypothyroid (Acute) - Surgical History Surgical History: Surgical History (Last Reviewed 02/08/18 @ 23:24 by Calderon Ricci) Hx of section (Acute) Hx of cholecystectomy (Acute) - Tobacco History Second Hand Smoke Exposure: No Smoking Status: Never smoker - Alcohol History How Often Do You Have a Drink Containing Alcohol: Never - Substance Use History Substance History: No History of Abuse - Travel History Recent Travel in the [place] Within the Last 8 Weeks: No Recent Travel Out of the Country Within the Last 8 Weeks: No - Immunization History Tetanus Immunization: >5 Years Hx Influenza Vaccine This Season: No Medications and Allergies Active Medications: Active Medications Acetaminophen (Tylenol Supp) 650 mg RECTAL Q6H PRN PRN Reason: PAIN 1-5 Al Hydroxide/Mg Hydroxide (Milk Of Magnesia Liq) 30 ml PO Q12H PRN PRN Reason: Mild Constipation Baclofen (Lioresal) 20 mg PO HS [facility] Bisacodyl (Dulcolax Supp) 10 mg RECTAL DAILY PRN PRN Reason: SEVERE CONSITIPATION Buspirone HCl (Buspar) 30 mg PO HS [facility] Sodium Chloride (Ns Inj) 1,000 mls @ 100 mls/hr IV.CONT .Q10H [facility] Last Admin: 02/09/18 00:58 Dose: 100 mls/hr Lactulose (Lactulose Liq) 30 ml PO DAILY PRN PRN Reason: SEVERE CONSITIPATION Metoclopramide HCl (Reglan Inj) 5 mg IV.PUSH Q6H PRN PRN Reason: HEARTBURN Last Admin: 02/09/18 04:28 Dose: 5 mg Montelukast Sodium (Singulair) 10 mg PO QPM [facility] Morphine Sulfate (Morphine Inj) 2 mg IV.PUSH Q6H PRN PRN Reason: PAIN 6-10 Last Admin: 02/09/18 08:00 Dose: 2 mg Ondansetron HCl (Zofran Inj) 4 mg IV.PUSH Q6H PRN PRN Reason: NAUSEA OR VOMITING Pantoprazole Sodium (Protonix Inj) 40 mg IV.PUSH Q12H [facility] Last Admin: 02/09/18 00:21 Dose: Not Given Sennosides (Senokot) 17.2 mg PO Q12H PRN PRN Reason: Moderate Constipation Sodium Chloride (Ns Flush) 2 ml IV.FLUSH PRN PRN PRN Reason: FLUSH AFTER USING IV ACCESS Last Admin: 02/09/18 04:28 Dose: 2 ml Allergies Allergy/AdvReac Type Severity Reaction Status Date / Time ciprofloxacin [From Cipro] AdvReac Nausea Verified 02/08/18 22:57 levofloxacin [From Levaquin] AdvReac Nausea Verified 02/08/18 22:57 Home Medications Medication Instructions Recorded Confirmed Type baclofen 20 mg PO 01/22/18 02/08/18 History buspirone 30 mg PO HS 01/22/18 02/08/18 History estradiol [Estradiol Transdermal 0.05 mg TRANSDERMAL QWEEK 01/22/18 02/08/18 History Patch] montelukast 10 mg PO QPM 01/22/18 02/08/18 History progesterone micronized 250 mg PO DAILY 01/22/18 02/08/18 History liothyronine 12.5 mcg PO DAILY 02/09/18 02/09/18 History methocarbamol [Robaxin] 500 mg PO BID 02/09/18 02/09/18 History pantoprazole 40 mg PO DAILY 02/09/18 02/09/18 History sucralfate [Carafate] 10 ml PO TID 02/09/18 02/09/18 History Exam Vital signs: Vital Signs 02/08/18 21:33 02/08/18 21:36 02/08/18 23:35 Temperature 98.2 F Pulse Rate 102 H 94 H Respiratory Rate 16 18 16 Blood Pressure 136/78 124/84 Pulse Oximetry 96 98 98 02/09/18 00:18 02/09/18 01:35 02/09/18 01:36 Temperature 98.4 F Pulse Rate 80 Respiratory Rate 16 16 18 Blood Pressure 118/81 Pulse Oximetry 97 98 02/09/18 03:05 02/09/18 03:26 02/09/18 08:00 Temperature 98.7 F 98.7 F Pulse Rate 95 H 89 99 H Respiratory Rate 16 20 16 Blood Pressure 104/60 123/78 141/77 H Pulse Oximetry 97 96 Intake & Output 02/08/18 02/09/18 02/09/18 18:59 06:59 18:59 Intake Total 1000 / 1000 Balance 1000 / 1000 Weight 50.4 kg Intake: IV 1000 / 1000 NS Inj 1,000 ML @ Wide Open IV. 1000 / 1000 SIG BOLUS ONE Rx#:[id number] Oral 0 / 0 Other: # Voids 1 Date of Last Bowel Movement 02/08/18 02/08/18 Weight On Admission 50.6 kg Narrative: General: Lean petite female sitting upright in chair in no apparent distress HEENT: Head is normocephalic atraumatic, extraocular motions intact, no scleral icterus or injection, moist mucous membranes Neck: Supple no lymphadenopathy CV: Regular rate and rhythm, S1 and S2, no murmurs Lungs: Clear to auscultation bilaterally and normal respiratory effort Abdomen: Normal bowel sounds, epigastric area is tender to palpation, soft flat nondistended Extremities: Warm dry and perfused Skin, no rash well-perfused Neurologic, alert and oriented, moves all extremities well, face symmetric, speech normal Psychiatric: Mildly tearful when discussing the ordeal she has recently been through, normal affect with good eye contact, normal insight and judgment Results - Labs Result diagrams: 02/09/18 06:40 02/09/18 06:40 Abnormal lab results 02/08/18 02/08/18 02/09/18 Range/Units 22:50 23:35 06:40 [place] % (Auto) 10.0 H (0.0-8.0) % Calcium (8.5-10.1) mg/dL Alkaline Phosphatase (45-117) U/L Troponin I Less than 0.02 L (0.02-0.05) ng/mL Total Protein (6.4-8.2) g/dL Urine Ketones 80 or greater H (Negative) mg/dL Ur Leukocyte Esterase Trace H (Negative) Urine WBC 6-8 H (0-5) /hpf Ur Squamous Epith Cells 6-10 H (0-5) /hpf 02/09/18 Range/Units 06:40 [place] % (Auto) (0.0-8.0) % Calcium 8.1 L D (8.5-10.1) mg/dL Alkaline Phosphatase 41 L (45-117) U/L Troponin I (0.02-0.05) ng/mL Total Protein 6.2 L D (6.4-8.2) g/dL Urine Ketones (Negative) mg/dL Ur Leukocyte Esterase (Negative) Urine WBC (0-5) /hpf Ur Squamous Epith Cells (0-5) /hpf Short CBC 02/08/18 02/09/18 Range/Units 23:35 06:40 WBC 8.8 6.1 (4.0-11.0) th/mm3 Hgb 14.9 13.2 (11.6-15.3) gm/dL Hct 43.6 39.5 (35.0-46.0) % Plt Count 329 274 (150-450) th/mm3 BMP 02/08/18 02/09/18 23:35 06:40 Sodium 138 142 Potassium 3.6 3.9 Chloride 101 106 Carbon Dioxide 27.2 30.2 BUN 9 7 Creatinine 0.62 0.50 Calcium 9.1 8.1 L D Cardiac Enzymes 02/08/18 Range/Units 23:35 Troponin I Less than 0.02 L (0.02-0.05) ng/mL Liver Function 02/08/18 02/09/18 Range/Units 23:35 06:40 Total Bilirubin 0.6 0.5 (0.2-1.0) mg/dL AST 15 15 (15-37) U/L ALT 23 21 (10-53) U/L Alkaline Phosphatase 49 41 L (45-117) U/L Albumin 4.1 3.5 D (3.4-5.0) g/dL Urine 02/08/18 Range/Units 22:50 Urine Color Yellow (Yellw/Straw) Urine Clarity Clear (Clear) Urine pH 5.5 (5.0-8.5) Ur Specific [place] 1.010 (1.002-1.035) Urine Protein Negative (Neg-Trace) mg/dL Urine Glucose (UA) Negative (Negative) mg/dL - Imaging Impressions Abdomen/Pelvis CT 02/09/18 00:36 CONCLUSION: 1. No obstruction or acute inflammatory changes. 2. Heterogeneously enhancing mass of the cervix/lower uterine segment remnant. This may be a fibroid but cervical and endometrial carcinoma would also be in the differential. No lymphadenopathy or free fluid. 3. Benign cyst and mild fatty infiltration of the liver. Caprini VTE Risk Assessment Caprini VTE Risk Assessment: Moderate/High Risk (score >= 2) Caprini Risk Assessment Model: Point Value = 1 Point Value = 2 Point Value = 3 Point Value = 5 Age 41-60 Minor surgery BMI > 25 kg/m2 Swollen legs Varicose veins or History of unexplained or recurrent spontaneous Oral contraceptives or hormone replacement Sepsis (< 1 month) Serious lung disease, including pneumonia (< 1 month) Abnormal pulmonary function Acute myocardial infarction Congestive heart failure (< 1 month) History of inflammatory bowel disease Medical patient at bed rest Age 61-74 Arthroscopic surgery Major open surgery (> 45 min) Laparoscopic surgery (> 45 min) Malignancy Confined to bed (> 72 hours) Immobilizing plaster cast Central venous access Age >= 75 History of VTE Family history of VTE Factor V Leiden Prothrombin [id number] Lupus anticoagulant Anticardiolipin antibodies Elevated serum homocysteine Heparin-induced thrombocytopenia Other congenital or acquired thrombophilia Stroke (< 1 month) Elective arthroplasty Hip, pelvis, or leg fracture Acute spinal cord injury (< 1 month) Prophylaxis Regimen: Total Risk Factor Score Risk Level Prophylaxis Regimen 0-1 Low Early ambulation 2 Moderate Order ONE of the following: *Sequential Compression Device (SCD) *Heparin 5000 units SQ BID 3-4 Higher Order ONE of the following medications: *Heparin 5000 units SQ TID *Enoxaparin/Lovenox 40 mg SQ daily (WT < 150 kg, CrCl > 30 mL/min) *Enoxaparin/Lovenox 30 mg SQ daily (WT < 150 kg, CrCl > 10-29 mL/min) *Enoxaparin/Lovenox 30 mg SQ BID (WT < 150 kg, CrCl > 30 mL/min) AND/OR *Sequential Compression Device (SCD) 5 or more Highest Order ONE of the following medications: *Heparin 5000 units SQ TID (Preferred with Epidurals) *Enoxaparin/Lovenox 40 mg SQ daily (WT < 150 kg, CrCl > 30 mL/min) *Enoxaparin/Lovenox 30 mg SQ daily (WT < 150 kg, CrCl > 10-29 mL/min) *Enoxaparin/Lovenox 30 mg SQ BID (WT < 150 kg, CrCl > 30 mL/min) AND *Sequential Compression Device (SCD) Assessment and Plan - Assessment (1) Intractable nausea and vomiting Code(s): R11.2 - Nausea with vomiting, unspecified Status: Acute (2) GERD (gastroesophageal reflux disease) Code(s): K21.9 - Gastro-esophageal reflux disease without esophagitis Status: Acute (3) Abdominal pain Code(s): R10.9 - Unspecified abdominal pain Status: Acute - Assessment and Plan I am going to ask GI to see her for endoscopy Continue Protonix IV and Zofran/Reglan as needed, give her Fioricet for the headache as needed I am going to add Zantac as she is not responding to the Protonix IV Resume her normal medications IV fluids DVT prophylaxis H&P: Quality - VTE Deep Vein Thrombosis/Pulmonary Embolism Present on Admission: No
[2018-02-09] MEDS: Montelukast 10 MG Tablet PO SCH (17:37)
[2018-02-09] MEDS: Famotidine 20 MG Tablet PO SCH (20:41)
--- NOTE | 2018-02-09 21:22 | ECG ---
Date Performed: 02/09/2018 Time Performed: 00:09:14 PTAGE: 52 years EKG: Sinus rhythm NORMAL ECG PREVIOUS TRACING : 01/29/2018 12.36 Since the previous tracing, no significant change noted DOCTOR: Jacky Leger Interpretating Date/Time 02/09/2018 21:20:51
[2018-02-10] MEDS: Sod Chloride 0.9% Inj 1,000 ML IV.CONT SCH ×2 (06:49→17:39)
[2018-02-10] MEDS: Famotidine 20 MG Tablet PO SCH ×2 (08:37→20:39)
[2018-02-10] MEDS ORDERED: Butalbital/APAP/Caff 50/325/40 MG Tablet PO PRN (11:49)
[2018-02-10] MEDS ORDERED: Acetaminophen 500 MG Tablet PO PRN (11:49)
--- NOTE | 2018-02-10 12:25 | P.PNFP ---
Subjective Interval history: Patient very upset because GI has not seen her yet. She is hungry and wants to eat. She continues to have burning epigastric pain, and belching. No improvement with protonix or pepcid. Patient believes she was given prevacid ( but this was not ordered). Patient unhappy with her day nurse's care yesterday and has called [facility] insurance this morning. Her observation stay is approved. Apparently in outpatient setting, behavioral health was attempting to work with the patient. Patient strongly declines psychiatry consultation in hospital. She does not want to take any of "their medications." Patient believes her current symptoms are likely due to her thyroid hormone levels being abnormal with adjustments in her medications. Patient states she is hyper this morning because of having not eaten. She complains of headache, improved since yesterday. Would like tylenol and fioricet as needed. Results - Labs Result diagrams: 02/09/18 06:40 02/09/18 06:40 Physical Exam Vital signs: Vital Signs 02/09/18 16:00 02/09/18 20:00 02/10/18 00:00 Temperature 98.4 F 97.7 F 98.4 F Pulse Rate 97 H 89 74 Respiratory Rate 18 20 20 Blood Pressure 125/76 120/70 112/73 Pulse Oximetry 98 97 98 02/10/18 09:20 Temperature 99.3 F Pulse Rate 105 H Respiratory Rate 16 Blood Pressure 127/83 Pulse Oximetry 96 Intake & Output 02/09/18 02/10/18 02/10/18 18:59 06:59 18:59 Intake Total 1000 / 1000 1999 Balance 1000 / 1000 1999 Weight 48.9 kg Intake: IV 1000 / 1000 1999 NS Inj 1,000 ML @ 100 mls/hr IV 1000 / 1000 1999 .CONT .Q10H [facility] Rx#:[id number] Oral 0 / 0 Other: # Voids 6 Date of Last Bowel Movement 02/08/18 # Bowel Movements 3 Narrative: General: Lean petite female in no apparent distress HEENT: Head is normocephalic atraumatic, extraocular motions intact, no scleral icterus or injection, moist mucous membranes Neck: Supple no lymphadenopathy CV: Regular rate and rhythm, S1 and S2, no murmurs Lungs: Clear to auscultation bilaterally and normal respiratory effort Abdomen: Normal bowel sounds, epigastric area is mildly tender to palpation, soft flat nondistended Extremities: Warm dry and perfused Skin, no rash well-perfused Neurologic, alert and oriented, moves all extremities well, face symmetric, speech normal Psychiatric: Talkative with elevated mood, rapid speech, normal logic and insight, no pressured speech, normal affect, good eye contact. Assessment and Plan - Assessment (1) Intractable nausea and vomiting Code(s): R11.2 - Nausea with vomiting, unspecified Status: Acute (2) GERD (gastroesophageal reflux disease) Code(s): K21.9 - Gastro-esophageal reflux disease without esophagitis Status: Acute (3) Abdominal pain Code(s): R10.9 - Unspecified abdominal pain Status: Acute - Assessment and Plan -GI consult pending (I did call the service as it has been more than 24 hours since consult placed, they will see her today), diff dx includes GERD, gastritis /esophagitis or ulcer, gastroparesis. Continue Protonix IV, pepcid and Zofran/Reglan as needed, give her Fioricet for the headache as needed. Advance to regular diet as she is hungry and ready to eat. DC IVF. Continue home medications for: Autoimmune hypothyroidism, cardiomyopathy now resolved, heart palpitations and has 24 hour Holter monitor ordered as well as cardiac CTA, chronic pain with cervical radiculopathy and low back pain Fibromyalgia Anxiety - PATIENT ADAMANTLY DECLINES PSYCHIATRY CONSULTATION, apparently behavioral health has tried to get in contact with her as outpatient due to anxiety and multiple ER visits. She is not interested in engaging with mental health at this time. No evidence of psychosis, depression or suicidal ideation in this patient. Migraines Rhinitis History of opioid dependence no longer on opioids On hormone replacement therapy Chronic hypotension Appendectomy, cholecystectomy, DVT prophylaxis with SCDs.
[2018-02-10] MEDS: Pantoprazole Inj 40 MG Vial IV.PUSH SCH ×2 (12:32→23:12)
--- NOTE | 2018-02-10 12:48 | P.CONGI ---
History of Present Illness Consult date: 02/10/18 Consult reason: Epigastric abdominal pain nausea and vomiting Chief complaint: Abdominal Pain, Vomiting History of Present Illness: This is a slim 52-year-old female who came into the hospital on 02/08/2018 with complaints of epigastric top abdominal pain with other symptoms associated nausea vomiting, bloating and belching 6 weeks. Patient states that chief complaint now is her nausea and epigastric pain and notes that she feels the calls is the change in her thyroid medicine to generic. Patient currently denies any other abdominal pain but states that her reflux is uncontrolled on a scale of 10 out of 10 even when she is sitting up to sleep and not eating late at night. Patient initially was on Prilosec which was ineffective and is now taken Protonix IV which is not totally effective. Ranitidine was added today and explained to patient to give it some time to know whether it is effective or not. Last EGD was around 2011 which showed gastritis. Patient states colonoscopy 3-4 years ago otherwise uneventful. Patient states aunt had colon cancer, age 70s. Patient has multiple medical comorbidities but thyroid disease and management of her meds seems to affect her GI symptoms the most. Patient's currently being managed on IV fluids at 100 cc an hour and currently denies any diarrhea or constipation. Last hemoglobin checked was 13.2. And no obvious bleeding noted. <Zayra Kaufman - Last Filed: 02/10/18 12:38> Review of Systems All other systems reviewed negative except as stated in HPI <Zayra Kaufman - Last Filed: 02/10/18 12:38> [facility] - History History Provided By: Patient - Medical History Medical History: Medical History (Last Reviewed 02/08/18 @ 23:24 by Calderon Ricci) Migraine (Acute) IBS (irritable bowel syndrome) (Acute) Anxiety (Acute) Fibromyalgia (Acute) Cardiomyopathy (Acute) Hypothyroid (Acute) - Surgical History Surgical History: Surgical History (Last Reviewed 02/08/18 @ 23:24 by Calderon Ricci) Hx of section (Acute) Hx of cholecystectomy (Acute) - Tobacco History Second Hand Smoke Exposure: No Smoking Status: Never smoker - Alcohol History How Often Do You Have a Drink Containing Alcohol: Never - Substance Use History Substance History: No History of Abuse - Travel History Recent Travel in the [facility] Within the Last 8 Weeks: No Recent Travel Out of the Country Within the Last 8 Weeks: No - Immunization History Tetanus Immunization: >5 Years Hx Influenza Vaccine This Season: No <Zayra Kaufman - Last Filed: 02/10/18 12:38> - Medical History Medical History: Medical History (Last Reviewed 02/08/18 @ 23:24 by Calderon Ricci) Migraine (Acute) IBS (irritable bowel syndrome) (Acute) Anxiety (Acute) Fibromyalgia (Acute) Cardiomyopathy (Acute) Hypothyroid (Acute) - Surgical History Surgical History: Surgical History (Last Reviewed 02/08/18 @ 23:24 by Calderon Ricci) Hx of section (Acute) Hx of cholecystectomy (Acute) <Brenda Rome - Last Filed: 02/10/18 19:38> Medications and Allergies Active Medications: Active Medications Acetaminophen (Tylenol Supp) 650 mg RECTAL Q6H PRN PRN Reason: PAIN 1-5 Last Admin: 02/09/18 23:47 Dose: 650 mg Acetaminophen (Tylenol) 500 mg PO Q6H PRN PRN Reason: prn headache severity 1-2 Acetaminophen/Butalbital/Caffeine (Fioricet 50-325-40) 1 tab PO Q6H PRN PRN Reason: headache severity 3-10 Al Hydroxide/Mg Hydroxide (Milk Of Magnesia Liq) 30 ml PO Q12H PRN PRN Reason: Mild Constipation Baclofen (Lioresal) 20 mg PO [facility] Last Admin: 02/09/18 20:42 Dose: 20 mg Bisacodyl (Dulcolax Supp) 10 mg RECTAL DAILY PRN PRN Reason: SEVERE CONSITIPATION Buspirone HCl (Buspar) 30 mg PO [facility] Last Admin: 02/09/18 20:41 Dose: 30 mg Famotidine (Pepcid) 20 mg PO BID [facility] Last Admin: 02/10/18 08:37 Dose: 20 mg Sodium Chloride (Ns Inj) 1,000 mls @ 100 mls/hr IV.CONT .Q10H [facility] Last Admin: 02/10/18 06:49 Dose: 100 mls/hr Lactulose (Lactulose Liq) 30 ml PO DAILY PRN PRN Reason: SEVERE CONSITIPATION Liothyronine Sodium (Cytomel) 12.5 mcg PO DAILY [facility] Last Admin: 02/10/18 08:36 Dose: 12.5 mcg Metoclopramide HCl (Reglan Inj) 5 mg IV.PUSH Q6H PRN PRN Reason: HEARTBURN Last Admin: 02/09/18 04:28 Dose: 5 mg Montelukast Sodium (Singulair) 10 mg PO QPM [facility] Last Admin: 02/09/18 17:37 Dose: 10 mg Morphine Sulfate (Morphine Inj) 2 mg IV.PUSH Q6H PRN PRN Reason: PAIN 6-10 Last Admin: 02/09/18 08:00 Dose: 2 mg Ondansetron HCl (Zofran Inj) 4 mg IV.PUSH Q6H PRN PRN Reason: NAUSEA OR VOMITING Last Admin: 02/09/18 20:42 Dose: 4 mg Pantoprazole Sodium (Protonix Inj) 40 mg IV.PUSH Q12H [facility] Last Admin: 02/10/18 12:32 Dose: 40 mg Sennosides (Senokot) 17.2 mg PO Q12H PRN PRN Reason: Moderate Constipation Sodium Chloride (Ns Flush) 2 ml IV.FLUSH PRN PRN PRN Reason: FLUSH AFTER USING IV ACCESS Last Admin: 02/09/18 04:28 Dose: 2 ml <Zayra Kaufman M - Last Filed: 02/10/18 12:38> Active Medications: Active Medications Acetaminophen (Tylenol Supp) 650 mg RECTAL Q6H PRN PRN Reason: PAIN 1-5 Last Admin: 02/09/18 23:47 Dose: 650 mg Acetaminophen (Tylenol) 500 mg PO Q6H PRN PRN Reason: prn headache severity 1-2 Acetaminophen/Butalbital/Caffeine (Fioricet 50-325-40) 1 tab PO Q6H PRN PRN Reason: headache severity 3-10 Al Hydroxide/Mg Hydroxide (Milk Of Magnesia Liq) 30 ml PO Q12H PRN PRN Reason: Mild Constipation Baclofen (Lioresal) 20 mg PO HS [facility] Last Admin: 02/09/18 20:42 Dose: 20 mg Bisacodyl (Dulcolax Supp) 10 mg RECTAL DAILY PRN PRN Reason: SEVERE CONSITIPATION Buspirone HCl (Buspar) 30 mg PO HS [facility] Last Admin: 02/09/18 20:41 Dose: 30 mg Famotidine (Pepcid) 20 mg PO BID [facility] Last Admin: 02/10/18 08:37 Dose: 20 mg Sodium Chloride (Ns Inj) 1,000 mls @ 100 mls/hr IV.CONT .Q10H [facility] Last Admin: 02/10/18 17:39 Dose: 100 mls/hr Lactulose (Lactulose Liq) 30 ml PO DAILY PRN PRN Reason: SEVERE CONSITIPATION Liothyronine Sodium (Cytomel) 12.5 mcg PO DAILY [facility] Last Admin: 02/10/18 08:36 Dose: 12.5 mcg Metoclopramide HCl (Reglan Inj) 5 mg IV.PUSH Q6H PRN PRN Reason: HEARTBURN Last Admin: 02/09/18 04:28 Dose: 5 mg Montelukast Sodium (Singulair) 10 mg PO QPM [facility] Last Admin: 02/10/18 17:38 Dose: 10 mg Morphine Sulfate (Morphine Inj) 2 mg IV.PUSH Q6H PRN PRN Reason: PAIN 6-10 Last Admin: 02/09/18 08:00 Dose: 2 mg Ondansetron HCl (Zofran Inj) 4 mg IV.PUSH Q6H PRN PRN Reason: NAUSEA OR VOMITING Last Admin: 02/09/18 20:42 Dose: 4 mg Pantoprazole Sodium (Protonix Inj) 40 mg IV.PUSH Q12H [facility] Last Admin: 02/10/18 12:32 Dose: 40 mg Sennosides (Senokot) 17.2 mg PO Q12H PRN PRN Reason: Moderate Constipation Sodium Chloride (Ns Flush) 2 ml IV.FLUSH PRN PRN PRN Reason: FLUSH AFTER USING IV ACCESS Last Admin: 02/09/18 04:28 Dose: 2 ml <Brenda Rome - Last Filed: 02/10/18 19:38> Allergies Allergy/AdvReac Type Severity Reaction Status Date / Time ciprofloxacin [From Cipro] AdvReac Nausea Verified 02/08/18 22:57 levofloxacin [From Levaquin] AdvReac Nausea Verified 02/08/18 22:57 Home Medications Medication Instructions Recorded Confirmed Type baclofen 20 mg PO HS 01/22/18 02/08/18 History buspirone 30 mg PO HS 01/22/18 02/08/18 History estradiol [Estradiol Transdermal 0.05 mg TRANSDERMAL QWEEK 01/22/18 02/08/18 History Patch] montelukast 10 mg PO QPM 01/22/18 02/08/18 History progesterone micronized 250 mg PO DAILY 01/22/18 02/08/18 History liothyronine 12.5 mcg PO DAILY 02/09/18 02/09/18 History methocarbamol [Robaxin] 500 mg PO BID 02/09/18 02/09/18 History pantoprazole 40 mg PO DAILY 02/09/18 02/09/18 History sucralfate [Carafate] 10 ml PO TID 02/09/18 02/09/18 History Exam Vital signs: Vital Signs 02/09/18 16:00 02/09/18 20:00 02/10/18 00:00 Temperature 98.4 F 97.7 F 98.4 F Pulse Rate 97 H 89 74 Respiratory Rate 18 20 20 Blood Pressure 125/76 120/70 112/73 Pulse Oximetry 98 97 98 02/10/18 09:20 Temperature 99.3 F Pulse Rate 105 H Respiratory Rate 16 Blood Pressure 127/83 Pulse Oximetry 96 Intake & Output 02/09/18 02/10/18 02/10/18 18:59 06:59 18:59 Intake Total 1000 / 1000 1999 Balance 1000 / 1000 1999 Weight 48.9 kg Intake: IV 1000 / 1000 1999 NS Inj 1,000 ML @ 100 mls/hr IV 1000 / 1000 1999 .CONT .Q10H [facility] Rx#:[id number] Oral 0 / 0 Other: # Voids 6 Date of Last Bowel Movement 02/08/18 # Bowel Movements 3 - Constitutional mild distress, thin - Routine HEENT Exam Head: Present: normocephalic ENT: Present: mucous membranes moist - Routine Neck Exam Present: supple - Routine Respiratory Exam Present: accessory muscle use (Even, unlabored) - Routine Cardiovascular Exam Present: S1, S2 - Routine Abdominal Exam Present: soft (Flat, active bowel sounds no obvious abdominal pain but does have some epigastric tenderness to light palpation) - Routine Extremities Exam Present: calf tenderness - Routine Neurological Exam Present: alert (Mild anxiety) <Zayra Kaufman - Last Filed: 02/10/18 12:38> Vital signs: Vital Signs 02/09/18 20:00 02/10/18 00:00 02/10/18 09:20 Temperature 97.7 F 98.4 F 99.3 F Pulse Rate 89 74 105 H Respiratory Rate 20 20 16 Blood Pressure 120/70 112/73 127/83 Pulse Oximetry 97 98 96 02/10/18 13:00 Temperature 97.8 F Pulse Rate 98 H Respiratory Rate 16 Blood Pressure 158/88 H Pulse Oximetry 97 Intake & Output 02/10/18 02/10/18 02/11/18 06:59 18:59 06:59 Intake Total 1999 850 / 850 Balance 1999 850 / 850 Weight 48.9 kg Intake: IV 1999 850 / 850 NS Inj 1,000 ML @ 100 mls/hr IV 1999 850 / 850 .CONT .Q10H [facility] Rx#:[id number] Oral 0 / 0 Other: # Voids 6 Date of Last Bowel Movement 02/08/18 # Bowel Movements 3 <Brenda Rome - Last Filed: 02/10/18 19:38> Results - Labs CBC & Chem 7: 02/09/18 06:40 02/09/18 06:40 <Zayra Kaufman - Last Filed: 02/10/18 12:38> - Labs CBC & Chem 7: 02/09/18 06:40 02/09/18 06:40 <Brenda Rome - Last Filed: 02/10/18 19:38> Assessment and Plan (1) Epigastric abdominal pain Status: Acute Code(s): R10.13 - Epigastric pain (2) GERD (gastroesophageal reflux disease) Status: Acute Code(s): K21.9 - Gastro-esophageal reflux disease without esophagitis - Plan 52-year-old pleasant lady with some mild anxiety over her current symptoms of epigastric tenderness and uncontrolled reflux disease. Her other symptoms include nausea vomiting, belching and burping onset approximately 6 weeks ago Aggregating factors are a change in her meds around her thyroid meds patient thinks. Last EGD 2011 showed gastritis. Prilosec ineffective and patient has been transitioned to Protonix IV over the past 24 hours and feels it may be helping sign but not completely effective. Zantac added today but need to get the regimen time to work. Patient states she does not eat late at night and is sleeping propped up on pillows but is still having severe reflux. No obvious bleeding current hemoglobin 13.2. Last colonoscopy was 3 4 years ago, does not remember any acute results. Plan Diet as tolerated Consent for EGD in a.m. N.p.o. at midnight Continue Protonix IV and Zantac Avoid carbonated drinks Avoid eating late at night and discussed reflux precautions with patient Further recommendations to follow Patient was seen per myself and Dr. Rome, note was written on his behalf <Zayra Kaufman - Last Filed: 02/10/18 12:38> (1) Epigastric abdominal pain Status: Acute Code(s): R10.13 - Epigastric pain (2) GERD (gastroesophageal reflux disease) Status: Acute Code(s): K21.9 - Gastro-esophageal reflux disease without esophagitis - Plan Patient was seen and examined, agree with above note, patient has chronic reflux symptoms for a few weeks and she feels a little bit better after she was started on IV Protonix, last endoscopy was a few years ago, will no anemia or other alarming symptom, we will plan on doing upper endoscopy tomorrow to rule out esophagitis, patient has been off her thyroid medication and she was restarted and there was fluctuation in that and it could be affecting her symptom, further plan depends on the finding tomorrow <Brenda Rome - Last Filed: 02/10/18 19:38>
[2018-02-10] MEDS: Montelukast 10 MG Tablet PO SCH (17:38)
[2018-02-11] MEDS: Sod Chloride 0.9% Inj 1,000 ML IV.CONT SCH (03:56)
[2018-02-11] MEDS ORDERED: Lidocaine PF 1% Inj 5 ML Syringe INFILTRATN ONE (07:12)
--- NOTE | 2018-02-11 07:23 | P.PCN ---
Procedure: THANK YOU FOR THE REFERRAL Indication; severe reflux symptom Procedure Performed; upper endoscopy with biopsy After informing the patient about procedure and possible complications consent was signed. history and physical were updated. Patient was taken to the procedure room and placed in position. Time out was completed. Adequate sedation was performed by anesthesia provider. Upper Endoscopy, the scope was placed in the mouth advanced under video guide to the second portion of the duodenum, then the scope was withdrawal to the stomach and retro-flexion was performed, the scope was withdrawal to the esophagus then out of the mouth without any immediate complication Findings; Esophagus: Normal esophagus, no esophagitis, no hiatal hernia, no reason for the reflux, biopsy to rule out microscopic esophagitis Stomach mild gastritis biopsy was done from the antrum Duodenum normal I cannot explain the patient's symptom on based on this procedure, could be esophageal spasm, and his anxiety Recommendations; 1- Supportive care 2- ok to transfer to recovery area then discharge per protocol 3-continue PPI 4-regular diet diet 5- EGD as needed 6-follow-up biopsy Okay to discharge home from GI perspective
--- NOTE | 2018-02-11 07:25 | P.PNGI ---
Subjective Interval history: Patient laying in bed, seems to be comfortable, she stated that she had significant reflux symptoms at night almost every hour Physical Exam Vital signs: Vital Signs 02/10/18 09:20 02/10/18 13:00 02/10/18 20:00 Temperature 99.3 F 97.8 F 98.9 F Pulse Rate 105 H 98 H 93 H Respiratory Rate 16 16 20 Blood Pressure 127/83 158/88 H 126/86 Pulse Oximetry 96 97 99 02/11/18 00:00 02/11/18 06:45 Temperature 97.9 F 98.1 F Pulse Rate 64 78 Respiratory Rate 20 20 Blood Pressure 114/69 136/89 Pulse Oximetry 99 97 Intake & Output 02/10/18 02/11/18 02/11/18 18:59 06:59 18:59 Intake Total 850 / 850 1000 / 1000 Balance 850 / 850 1000 / 1000 Weight 48.5 kg Intake: IV 850 / 850 1000 / 1000 NS Inj 1,000 ML @ 100 mls/hr IV 850 / 850 1000 / 1000 .CONT .Q10H [facility] Rx#:[id number] Oral 0 / 0 Other: # Voids 2 Date of Last Bowel Movement 02/08/18 - Constitutional no acute distress - Routine HEENT Exam Head: Present: normocephalic, atraumatic Eye: Present: EOMI, PERRL ENT: Present: mucous membranes moist - Routine Neck Exam Present: supple - Routine Respiratory Exam Present: CTA bilaterally - Routine Cardiovascular Exam Present: RRR, S1 - Routine Abdominal Exam Present: soft, normoactive bowel sounds - Routine Skin Exam Present: intact - Routine Neurological Exam Present: alert, oriented X3 Results - Labs CBC & Chem 7: 02/09/18 06:40 02/09/18 06:40 Assessment and Plan (1) Epigastric abdominal pain Status: Acute Code(s): R10.13 - Epigastric pain (2) GERD (gastroesophageal reflux disease) Status: Acute Code(s): K21.9 - Gastro-esophageal reflux disease without esophagitis - Plan Patient was seen and examined, agree with above note, patient has chronic reflux symptoms for a few weeks and she feels a little bit better after she was started on IV Protonix, last endoscopy was a few years ago, will no anemia or other alarming symptom, we will plan on doing upper endoscopy tomorrow to rule out esophagitis, patient has been off her thyroid medication and she was restarted and there was fluctuation in that and it could be affecting her symptom, further plan depends on the finding tomorrow 02/11/2018 patient has significant reflux, questionable etiology, she has that despite having PPI, she had upper endoscopy today Findings; Esophagus: Normal esophagus, no esophagitis, no hiatal hernia, no reason for the reflux, biopsy to rule out microscopic esophagitis Stomach mild gastritis biopsy was done from the antrum Duodenum normal I cannot explain the patient's symptom on based on this procedure, could be esophageal spasm, and his anxiety Recommendations; 1- Supportive care 2- ok to transfer to recovery area then discharge per protocol 3-continue PPI 4-regular diet diet 5- EGD as needed 6-follow-up biopsy Okay to discharge home from GI perspective Consider Diaz testing as an outpatient to rule out non-esophagitis reflux also motility study to rule out esophageal spasm could be entertained as an outpatient
[2018-02-11] MEDS: Famotidine 20 MG Tablet PO SCH (08:53)
--- NOTE | 2018-02-11 10:32 | P.DS ---
Date of admission: 02/08/18 23:18 Primary care physician: Matt Ying MD Brief History from admission: This is a pleasant 52-year-old female with history of GERD who presented with a 6 week history of intermittent epigastric pain, acid reflux, nausea and vomiting, belching. Patient states she has been unable to sleep or eat much over the past 4 weeks. She had been on unable to take p.o. medications. Patient has been seen in the ER and urgent cares multiple times. She had a negative cardiac workup several weeks ago as she was having some chest pain shortness of breath and dizziness at that time. Patient states symptoms are worsened by laying flat. Patient believes that symptoms might have been brought on by switching her baclofen medication, and switching her Synthroid to generic also her thyroid medications were being adjusted. She did have an EGD in 2011 for indication of nausea and vomiting showing nonspecific gastritis. She also endorses headache which she thinks is worsened by Reglan and has not responded to morphine IV. She does have history of migraines and used to take Fioricet for that. She does not want to take triptan's due to potential side effects. Patient has past medical history of Autoimmune hypothyroidism, cardiomyopathy now resolved, heart palpitations and has 24 hour Holter monitor ordered as well as cardiac CTA, chronic pain with cervical radiculopathy and low back pain Fibromyalgia Anxiety Migraines Rhinitis History of opioid dependence no longer on opioids On hormone replacement therapy Chronic hypotension Appendectomy, cholecystectomy, Patient update on day of discharge: Doing well, tolerating PO diet after EGD this morning. Relived EGD was negative. Desiring to go home. DS: Diagnosis - Discharge Diagnosis (1) Intractable nausea and vomiting Status: Acute (2) GERD (gastroesophageal reflux disease) Status: Acute (3) Abdominal pain Status: Acute DS: Medications - Discharge Medications Prescriptions: famotidine 20 mg PO BID #30 tab DS: Summary Hospital Course: Patient placed in observation, GI consulted, EGD was done showing no findings. Patient is reassured that nothing serious has been found. She is tolerating diet. She believes the GERD is due to recent medication change in her thyroid medication. She will continue to followup with PCP. - Time Spent with Patient Total time spent providing and/or coordinating discharge services: Less than 30 minutes - Quality: VTE Deep Vein Thrombosis/Pulmonary Embolism Present on Admission: No Exam Vital signs: Vital Signs 02/10/18 13:00 02/10/18 20:00 02/11/18 00:00 Temperature 97.8 F 98.9 F 97.9 F Pulse Rate 98 H 93 H 64 Respiratory Rate 16 20 20 Blood Pressure 158/88 H 126/86 114/69 Pulse Oximetry 97 99 99 02/11/18 06:45 02/11/18 07:30 02/11/18 07:40 Temperature 98.1 F 98.3 F Pulse Rate 78 76 77 Respiratory Rate 20 16 16 Blood Pressure 136/89 106/70 118/79 Pulse Oximetry 97 99 100 02/11/18 07:55 02/11/18 08:00 Temperature 98.3 F 97.0 F L Pulse Rate 75 79 Respiratory Rate 16 16 Blood Pressure 129/86 162/62 H Pulse Oximetry 100 97 Intake & Output 02/10/18 02/11/18 02/11/18 18:59 06:59 18:59 Intake Total 850 / 850 1000 / 1000 100 / 100 Balance 850 / 850 1000 / 1000 100 / 100 Weight 48.5 kg Intake: IV 850 / 850 1000 / 1000 NS Inj 1,000 ML @ 100 mls/hr IV 850 / 850 1000 / 1000 .CONT .Q10H FIGUEROA Rx#:[id number] Oral 0 / 0 Other 100 / 100 Other: # Voids 2 Date of Last Bowel Movement 02/08/18 Narrative: Gen: pleasant lean female in NAd CV: rrr, no murmurs Lungs:CTAB abd: BS+, mild ttp in epigastrium ext: no edema psych: elevated mood, talkative Results Procedures completed during hospitalization: EGD - Impressions ITS Impressions Abdomen/Pelvis CT 02/09/18 00:36 CONCLUSION: 1. No obstruction or acute inflammatory changes. 2. Heterogeneously enhancing mass of the cervix/lower uterine segment remnant. This may be a fibroid but cervical and endometrial carcinoma would also be in the differential. No lymphadenopathy or free fluid. 3. Benign cyst and mild fatty infiltration of the liver. Discharge Plan - Discharge Disposition Patient Disposition: 01 Discharge Home - Discharge Condition Condition: Fair - Discharge Order Discharge Orders: Discharge Order (Routine); Ordered 02/11/18 Ordered By: Jennifer Dwyer - Discharge Details Anticipated Discharge Date: 02/11/18 Discharge Comment: Followup with PCP in 1 week. - Physicians Team Primary Care Provider: Matt Ying Attending Provider: Jennifer Dwyer Other Providers: Cosme Kearney MD
== END 2018-02-11 11:20 | disposition home or self-care (01) ==
LOC: PHED 21:14 → PHEDA 21:14 → PH3 02-09 03:10
PROVIDERS: ADMIT Family Medicine; ATTEND Family Medicine
PROC: PANENDO (2018-02-11 07:12)